=== PATIENT | male | born 1950 | race Caucasian/White ===

== ENCOUNTER 2018-02-08 14:17 | Outpatient (REF) | payer MEDICARE, SELFPAY ==
[2018-02-08 22:39] LABS: Anion Gap 9.1 mmol/L (3-11); BUN 23 mg/dL (7-18); CO2 24.9 mmol/L (21.0-32.0); CREATININE 1.18 mg/dL (0.70-1.30); Calcium 8.5 mg/dL (8.5-10.1); Chloride 105 mmol/L (98-107); Glucose 134 mg/dL (70-100); Magnesium 1.5 mg/dL (1.8-2.4); Potassium 4.2 mmol/L (3.5-5.1); Sodium 139 mmol/L (136-145)
== END 2018-02-08 14:37 ==
LOC: NCHCN 14:17
PROVIDERS: PCP Internal Medicine; Visit Provider Registered Nurse
DX: I67.9 Cerebrovascular disease, unspecified (principal)
CPT/HCPCS: 80048; 83735

== ENCOUNTER 2018-02-23 11:48 | Outpatient (REF) | payer MEDICARE, OTHER, SELFPAY ==
[2018-02-23 23:09] LABS: Magnesium 1.8 mg/dL (1.8-2.4)
== END 2018-02-23 12:08 ==
LOC: NCHCN 11:48
PROVIDERS: PCP Internal Medicine; Visit Provider Registered Nurse
DX: I10 Essential (primary) hypertension (principal); R79.0 Abnormal level of blood mineral
CPT/HCPCS: 83735

== ENCOUNTER 2018-04-25 11:44 | Outpatient (REF) | payer MEDICARE, OTHER, SELFPAY ==
[2018-04-25 22:56] LABS: BUN 27 mg/dL (7-18); CREATININE 1.15 mg/dL (0.70-1.30); Calcium 8.7 mg/dL (8.5-10.1); Chloride 105 mmol/L (98-107); Glucose 109 mg/dL (70-100); Magnesium 1.7 mg/dL (1.8-2.4); Potassium 4.8 mmol/L (3.5-5.1); Sodium 138 mmol/L (136-145)
[2018-04-25 23:31] LABS: COMMENT (LAB VIEW ONLY) 78.62 mg/dL
[2018-04-25 23:38] LABS: Vitamin D 25 Total 40.1 ng/ml (30-100)
[2018-04-27 13:14] LABS: IgA 245 mg/dL (85-499); Interpretation SEE COMMENTS; Tissue Transglutaminase IgA 1.5 U/mL (<4.0)
== END 2018-04-25 12:04 ==
LOC: NCHCN 11:44
PROVIDERS: PCP Internal Medicine; Visit Provider Internal Medicine
DX: E55.9 Vitamin D deficiency, unspecified (principal); Z93.2 Ileostomy status; I10 Essential (primary) hypertension; R40.20 Unspecified coma; R73.01 Impaired fasting glucose
CPT/HCPCS: 80048; 82306; 82784; 83516; 82043; 82570; 83735

== ENCOUNTER 2018-06-14 13:54 | Outpatient (REF) | payer MEDICARE, OTHER, SELFPAY ==
[2018-06-14 22:26] LABS: Magnesium 1.6 mg/dL (1.8-2.4)
== END 2018-06-14 14:14 ==
LOC: NCHCN 13:54
PROVIDERS: PCP Internal Medicine; Visit Provider Internal Medicine
DX: E83.42 Hypomagnesemia (principal)
CPT/HCPCS: 83735

== ENCOUNTER 2019-05-03 08:49 | Outpatient (REF) | payer MEDICARE, OTHER, SELFPAY ==
[2019-05-03 17:00] LABS: Hemoglobin A1C 6.4 % (4.5-6.2)
[2019-05-03 17:01] LABS: Calculated LDL 87 mg/dL; Cholesterol 166 mg/dL (<200); Glucose 113 mg/dL (74-106); HDL Cholesterol 54 mg/dL (40-60); Triglyceride 129 mg/dL (<150)
== END 2019-05-03 09:09 ==
LOC: NCHCN 08:49
PROVIDERS: PCP Internal Medicine; Visit Provider Internal Medicine
DX: E78.5 Hyperlipidemia, unspecified (principal); I10 Essential (primary) hypertension; E83.42 Hypomagnesemia; R73.09 Other abnormal glucose; K90.0 Celiac disease
CPT/HCPCS: 80061; 82947; 83036; 83735

== ENCOUNTER 2020-05-27 16:11 | Outpatient (REF) | payer MEDICARE, OTHER, SELFPAY ==
[2020-05-27 21:07] LABS: Hemoglobin A1C 6.3 % (<5.7)
[2020-05-27 21:09] LABS: Anion Gap 9.2 mmol/L (3-11); BUN 24 mg/dL (7-18); CO2 24.8 mmol/L (21.0-32.0); CREATININE 1.24 mg/dL (0.70-1.30); Calcium 8.8 mg/dL (8.5-10.1); Calculated LDL 76 mg/dL (<100); Chloride 107 mmol/L (98-107); Cholesterol 146 mg/dL (<200); Estimated GFR 57.47 (mL/min/1.73m2); Glucose 111 mg/dL (74-106); HDL Cholesterol 43 mg/dL (40-60); Potassium 4.5 mmol/L (3.5-5.1); Sodium 141 mmol/L (136-145); Triglyceride 136 mg/dL (<150)
[2020-05-27 21:14] LABS: COMMENT (LAB VIEW ONLY) 155.86 mg/dL; Microalb ug/mg Crea 50.7 ug/mg Cr
== END 2020-05-27 16:31 ==
LOC: NCHCN 16:11
PROVIDERS: PCP Internal Medicine; Visit Provider Internal Medicine
DX: I10 Essential (primary) hypertension (principal); E78.5 Hyperlipidemia, unspecified; R73.03 Prediabetes; R80.9 Proteinuria, unspecified
CPT/HCPCS: 80048; 80061; 82043; 82570; 83036

== ENCOUNTER 2021-08-27 15:31 | Outpatient (REF) | payer MEDICARE, SELFPAY ==
[2021-08-27 16:32] LABS: Hemoglobin A1C 6.8 % (<5.7)
[2021-08-27 16:47] LABS: ALT 32 U/L (16-63); AST 17 U/L (15-37); Albumin 3.8 g/dL (3.4-5.0); Alkaline Phosphatase 74 U/L (46-116); Anion Gap 7.9 mmol/L (3-11); BUN 25 mg/dL (7-18); Bilirubin, Total 0.4 mg/dL (0.2-1.0); CO2 27.1 mmol/L (21.0-32.0); CREATININE 1.1 mg/dL (0.70-1.30); Chloride 108 mmol/L (98-107); Glucose 119 mg/dL (74-106); Potassium 4.8 mmol/L (3.5-5.1); Sodium 143 mmol/L (136-145); Total Protein 6.8 g/dL (6.4-8.2)
== END 2021-08-27 15:32 | disposition home or self-care (01) ==
LOC: NCHCN 15:31
PROVIDERS: PCP Internal Medicine; Visit Provider Internal Medicine
DX: E11.9 Type 2 diabetes mellitus without complications (principal); I10 Essential (primary) hypertension
CPT/HCPCS: 80053; 83036

== ENCOUNTER 2022-06-19 11:41 | Outpatient (REF) | payer MEDICARE, SELFPAY ==
[2022-06-19 16:28] LABS: Anion Gap 7.8 mmol/L (3-11); BUN 33 mg/dL (7-18); CO2 24.2 mmol/L (21.0-32.0); CREATININE 1.4 mg/dL (0.70-1.30); Calcium 9.3 mg/dL (8.5-10.1); Calculated LDL 78 mg/dL (<100); Chloride 108 mmol/L (98-107); Cholesterol 154 mg/dL (<200); Estimated GFR 53.07 (mL/min/1.73m2); Glucose 197 mg/dL (74-106); HDL Cholesterol 56 mg/dL (40-60); Potassium 4.5 mmol/L (3.5-5.1); Sodium 140 mmol/L (136-145); Triglyceride 104 mg/dL (<150); Vitamin B12 420 pg/mL (193-986)
[2022-06-19 22:45] LABS: Estimated Average Glucose 163 mg/dL; Hemoglobin A1C 7.3 % (<5.7)
== END 2022-06-19 11:42 | disposition home or self-care (01) ==
LOC: NCHCN 11:41
PROVIDERS: PCP Internal Medicine; Visit Provider Internal Medicine
DX: I10 Essential (primary) hypertension (principal); E78.5 Hyperlipidemia, unspecified; E11.9 Type 2 diabetes mellitus without complications; K90.0 Celiac disease
CPT/HCPCS: 80048; 80061; 82607; 83036

== ENCOUNTER 2022-06-24 10:30 | Outpatient (REF) | payer MEDICARE, SELFPAY ==
[2022-06-24 16:32] LABS: COMMENT (LAB VIEW ONLY) 141.03 mg/dL; Microalb ug/mg Crea 39.7 ug/mg Cr
== END 2022-06-24 10:31 | disposition home or self-care (01) ==
LOC: NCHCN 10:30
PROVIDERS: PCP Internal Medicine; Visit Provider Internal Medicine
DX: E11.9 Type 2 diabetes mellitus without complications (principal)
CPT/HCPCS: 82043; 82570

== ENCOUNTER 2022-12-14 12:54 | Outpatient (REF) | payer MEDICARE, SELFPAY ==
[2022-12-14 15:51] LABS: Anion Gap 9.3 mmol/L (3-11); BUN 37 mg/dL (7-18); CO2 24.7 mmol/L (21.0-32.0); CREATININE 1.6 mg/dL (0.70-1.30); Calcium 9.4 mg/dL (8.5-10.1); Chloride 107 mmol/L (98-107); Estimated GFR 44.93 (mL/min/1.73m2); Glucose 174 mg/dL (74-106); Potassium 4.7 mmol/L (3.5-5.1); Sodium 141 mmol/L (136-145)
[2022-12-14 16:10] LABS: Hemoglobin A1C 6.4 % (<5.7)
== END 2022-12-14 12:55 | disposition home or self-care (01) ==
LOC: NCHCN 12:54
PROVIDERS: PCP Internal Medicine; Visit Provider Internal Medicine
DX: E11.9 Type 2 diabetes mellitus without complications (principal); I10 Essential (primary) hypertension
CPT/HCPCS: 80048; 83036

== ENCOUNTER 2023-03-18 13:10 | Outpatient (REF) | payer MEDICARE, SELFPAY ==
[2023-03-18 16:18] LABS: Abs Immature Grans 0.01 10^3/uL (0.0-0.06); Absolute Basophil Count 0.04 10^3/uL (0.0-0.2); Absolute Eosinophil Count 0.17 10^3/uL (0.0-0.7); Absolute Lymphocyte Count 1.35 10^3/uL (1.2-3.4); Absolute Monocyte Count 0.37 10^3/uL (0.1-0.8); Absolute Neutrophil Count 3.73 10^3/uL (1.2-6.7); Basophils % 0.7; HCT 35.2 % (40.0-50.0); Immature Grans % 0.2; Lymphocytes % 23.8; MCH 32.2 pg (27.0-33.0); MCHC 34.1 % (32.0-36.0); MCV 94 fL (80-95); Monocytes % 6.5; Neutrophils % 65.8; Platelet Count 196 10^3/uL (130-400); RBC 3.73 10^6/uL (4.36-5.78); RDW 13.2 % (11.8-14.1); RDW-SD 45.1 fL; WBC 5.67 10^3/uL (4.4-10.8)
[2023-03-18 16:28] LABS: Anion Gap 9.7 mmol/L (3-11); BUN 33 mg/dL (7-18); CO2 21.3 mmol/L (21.0-32.0); CREATININE 1.7 mg/dL (0.70-1.30); Calcium 9.6 mg/dL (8.5-10.1); Chloride 108 mmol/L (98-107); Estimated GFR 41.78 (mL/min/1.73m2); Glucose 142 mg/dL (74-106); Potassium 4.6 mmol/L (3.5-5.1); Sodium 139 mmol/L (136-145)
[2023-03-18 17:25] LABS: Hemoglobin A1C 6.5 % (<5.7)
== END 2023-03-18 13:11 | disposition home or self-care (01) ==
LOC: NCHCN 13:10
PROVIDERS: PCP Internal Medicine; Visit Provider Internal Medicine
DX: E11.9 Type 2 diabetes mellitus without complications (principal); I10 Essential (primary) hypertension; Z00.00 Encounter for general adult medical examination without abnormal findings; I67.9 Cerebrovascular disease, unspecified
CPT/HCPCS: 80048; 83036; 85025

== ENCOUNTER 2023-06-21 15:07 | Outpatient (REF) | payer MEDICARE, SELFPAY ==
[2023-06-21 14:42] LABS: HCT 36.6 % (40.0-50.0); HGB 12.3 g/dL (13.5-17.5); MCH 31.8 pg (27.0-33.0); MCHC 33.6 % (32.0-36.0); MCV 95 fL (80-95); MPV 11.5 fL (8.0-11.0); Platelet Count 208 10^3/uL (130-400); RBC 3.87 10^6/uL (4.36-5.78); RDW 12.3 % (11.8-14.1); RDW-SD 42.5 fL; WBC 7.01 10^3/uL (4.4-10.8)
[2023-06-21 14:52] LABS: Bilirubin Negative (Negative); Blood Negative (Negative); Clarity Turbid (Clear); Glucose Negative (Negative); Ketones Negative (Negative); Leukocyte Esterase Negative (Negative); Nitrite Negative (Negative); Urobilinogen 0.2 mg/dL (Up to 0.2)
[2023-06-21 15:00] LABS: Total Iron Binding Capacity 255 ug/dL (250-450)
[2023-06-21 15:31] LABS: Anion Gap 9.3 mmol/L (3-11); BUN 39 mg/dL (7-18); CO2 22.7 mmol/L (21.0-32.0); CREATININE 1.8 mg/dL (0.70-1.30); Calcium 9.5 mg/dL (8.5-10.1); Calculated LDL 62 mg/dL (<100); Chloride 105 mmol/L (98-107); Cholesterol 146 mg/dL (<200); Estimated GFR 39.01 (mL/min/1.73m2); Ferritin 275 ng/mL (26-388); Glucose 155 mg/dL (74-106); HDL Cholesterol 59 mg/dL (40-60); Potassium 4.6 mmol/L (3.5-5.1); Sodium 137 mmol/L (136-145); Triglyceride 125 mg/dL (<150); Vitamin B12 213 pg/mL (193-986)
[2023-06-22 09:56] LABS: Transferrin 206 mg/dL (201-352)
== END 2023-06-21 15:08 | disposition home or self-care (01) ==
LOC: NCHCN 15:07
PROVIDERS: PCP Internal Medicine; Visit Provider Internal Medicine
DX: N18.31 Chronic kidney disease, stage 3a (principal)
CPT/HCPCS: 80048; 80061; 85027; 81003; 82607; 82728; 83550; 84466

== ENCOUNTER 2023-06-28 16:14 | Outpatient (REF) | payer MEDICARE, SELFPAY ==
[2023-06-28 18:55] LABS: COMMENT (LAB VIEW ONLY) 168.65 mg/dL; Microalb ug/mg Crea 5.7 ug/mg Cr
== END 2023-06-28 16:15 | disposition home or self-care (01) ==
LOC: NCHCN 16:14
PROVIDERS: PCP Internal Medicine; Visit Provider Internal Medicine
DX: E11.9 Type 2 diabetes mellitus without complications (principal)
CPT/HCPCS: 82043; 82570

== ENCOUNTER 2023-09-13 11:06 | Outpatient (REF) | payer MEDICARE, SELFPAY ==
[2023-09-13 15:16] LABS: HCT 37.5 % (40.0-50.0); HGB 12.4 g/dL (13.5-17.5); MCH 32.2 pg (27.0-33.0); MCHC 33.1 % (32.0-36.0); MCV 97 fL (80-95); MPV 11.9 fL (8.0-11.0); Platelet Count 193 10^3/uL (130-400); RBC 3.85 10^6/uL (4.36-5.78); RDW 13.3 % (11.8-14.1); RDW-SD 47.7 fL; WBC 7.01 10^3/uL (4.4-10.8)
[2023-09-13 16:06] LABS: Anion Gap 10.9 mmol/L (3-11); BUN 41 mg/dL (7-18); CO2 23.1 mmol/L (21.0-32.0); CREATININE 2.2 mg/dL (0.70-1.30); Calcium 9.4 mg/dL (8.5-10.1); Chloride 110 mmol/L (98-107); Estimated GFR 30.47 (mL/min/1.73m2); Glucose 109 mg/dL (74-106); Hemoglobin A1C 6.4 % (<5.7); Potassium 5.1 mmol/L (3.5-5.1); Sodium 144 mmol/L (136-145); Vitamin B12 428 pg/mL (193-986)
== END 2023-09-13 11:07 | disposition home or self-care (01) ==
LOC: NCHCN 11:06
PROVIDERS: PCP Internal Medicine; Visit Provider Internal Medicine
DX: E11.9 Type 2 diabetes mellitus without complications (principal); D64.9 Anemia, unspecified; N18.31 Chronic kidney disease, stage 3a
CPT/HCPCS: 80048; 85027; 82607; 83036

== ENCOUNTER 2023-09-17 13:14 | Outpatient (REF) | payer MEDICARE, SELFPAY ==
[2023-09-17 21:40] LABS: Epithelial Cells Rare HPF (Negative); RBC Negative HPF (0-2); WBC Negative HPF (0-5)
[2023-09-17 21:41] LABS: Bacteria Rare HPF (Negative); C & S Indicated? No; Casts Negative LPF (Negative); Crystals Moderate Amorphous HPF (Negative); Mucus Negative (Negative)
== END 2023-09-17 13:15 | disposition home or self-care (01) ==
LOC: NCHCN 13:14
PROVIDERS: PCP Internal Medicine; Visit Provider Internal Medicine
DX: N18.31 Chronic kidney disease, stage 3a (principal)
CPT/HCPCS: 81015

== ENCOUNTER 2023-12-20 15:21 | Outpatient (REF) | payer MEDICARE, SELFPAY ==
[2023-12-20 21:33] LABS: MCH 31.8 pg (27.0-33.0); MCHC 34.1 % (32.0-36.0); MCV 93 fL (80-95); MPV 11.6 fL (8.0-11.0); Platelet Count 233 10^3/uL (130-400); RDW 12.4 % (11.8-14.1); RDW-SD 42.9 fL; WBC 8.43 10^3/uL (4.4-10.8)
[2023-12-20 21:59] LABS: Anion Gap 9.8 mmol/L (3-11); BUN 42 mg/dL (7-18); CO2 24.2 mmol/L (21.0-32.0); CREATININE 1.8 mg/dL (0.70-1.30); Calcium 9.4 mg/dL (8.5-10.1); Chloride 105 mmol/L (98-107); Estimated GFR 38.77 (mL/min/1.73m2); Glucose 143 mg/dL (74-106); Potassium 4.9 mmol/L (3.5-5.1); Sodium 139 mmol/L (136-145)
[2023-12-20 22:10] LABS: Hemoglobin A1C 6.1 % (<5.7)
== END 2023-12-20 15:22 | disposition home or self-care (01) ==
LOC: NCHCN 15:21
PROVIDERS: PCP Internal Medicine; Visit Provider Internal Medicine
DX: E11.9 Type 2 diabetes mellitus without complications (principal); I10 Essential (primary) hypertension
CPT/HCPCS: 80048; 85027; 83036

== ENCOUNTER 2024-06-16 19:20 | Outpatient (REF) | payer MEDICARE, SELFPAY ==
[2024-06-16 14:19] LABS: HCT 42.9 % (40.0-50.0); HGB 14.1 g/dL (13.5-17.5); MCH 31.5 pg (27.0-33.0); MCHC 32.9 % (32.0-36.0); MCV 96 fL (80-95); MPV 11.7 fL (8.0-11.0); Platelet Count 193 10^3/uL (130-400); RBC 4.48 10^6/uL (4.36-5.78); RDW-SD 45.2 fL; WBC 6.59 10^3/uL (4.4-10.8)
[2024-06-16 14:53] LABS: ALT 19 U/L (16-63); AST 15 U/L (15-37); Albumin 3.9 g/dL (3.4-5.0); Alkaline Phosphatase 91 U/L (46-116); Anion Gap 8.2 mmol/L (3-11); BUN 36 mg/dL (7-18); Bilirubin, Total 0.44 mg/dL (0.2-1.0); CO2 26.8 mmol/L (21.0-32.0); CREATININE 2.1 mg/dL (0.70-1.30); Calcium 9.9 mg/dL (8.5-10.1); Chloride 109 mmol/L (98-107); Estimated GFR 32.22 (mL/min/1.73m2); Glucose 134 mg/dL (74-106); PHOSPHORUS 3.6 mg/dL (2.6-4.7); Potassium 4.7 mmol/L (3.5-5.1); Sodium 144 mmol/L (136-145); Total Protein 7.3 g/dL (6.4-8.2)
[2024-06-16 15:33] LABS: Vitamin D 25 Total 68.1 ng/mL (30-100)
[2024-06-16 23:01] LABS: Parathyroid Hormone,Intact 82.4 pg/mL (19.0-88.0)
== END 2024-06-16 19:21 | disposition home or self-care (01) ==
LOC: NCHCN 19:20
PROVIDERS: PCP Internal Medicine; Visit Provider Internal Medicine
DX: N18.31 Chronic kidney disease, stage 3a (principal)
CPT/HCPCS: 80053; 82306; 85027; 83036; 83970; 84100

== ENCOUNTER 2024-06-23 10:23 | Outpatient (REF) | payer MEDICARE, SELFPAY ==
[2024-06-23 15:24] LABS: COMMENT (LAB VIEW ONLY) 167.39 mg/dL; Microalb ug/mg Crea 4.2 ug/mg Cr
== END 2024-06-23 10:24 | disposition home or self-care (01) ==
LOC: NCHCN 10:23
PROVIDERS: PCP Internal Medicine; Visit Provider Internal Medicine
DX: E11.9 Type 2 diabetes mellitus without complications (principal)
CPT/HCPCS: 82043; 82570

== ENCOUNTER 2024-09-13 14:33 | Outpatient (REF) | payer MEDICARE, SELFPAY ==
[2024-09-13 21:38] LABS: Anion Gap 5.9 mmol/L (3-11); BUN 26 mg/dL (7-18); CO2 29.1 mmol/L (21.0-32.0); CREATININE 1.8 mg/dL (0.70-1.30); Calcium 9.9 mg/dL (8.5-10.1); Chloride 108 mmol/L (98-107); Estimated GFR 38.53 (mL/min/1.73m2); Glucose 121 mg/dL (74-106); Potassium 4.9 mmol/L (3.5-5.1); Sodium 143 mmol/L (136-145)
== END 2024-09-13 14:34 | disposition home or self-care (01) ==
LOC: NCHCN 14:33
PROVIDERS: PCP Internal Medicine; Visit Provider Internal Medicine
DX: I10 Essential (primary) hypertension (principal)
CPT/HCPCS: 80048

== ENCOUNTER 2025-04-27 16:11 | Outpatient (REF) | payer MEDICARE, SELFPAY ==
[2025-04-27 21:42] LABS: HCT 47.6 % (40.0-50.0); HGB 15.8 g/dL (13.5-17.5); MCH 31.4 pg (27.0-33.0); MCHC 33.2 % (32.0-36.0); MCV 95 fL (80-95); MPV 11.6 fL (8.0-11.0); Platelet Count 220 10^3/uL (130-400); RBC 5.03 10^6/uL (4.36-5.78); RDW 13.2 % (11.8-14.1); RDW-SD 45.5 fL; WBC 6.66 10^3/uL (4.4-10.8)
[2025-04-27 22:07] LABS: ALT 15 U/L (10-49); AST 18 U/L (<34); Albumin 4.3 g/dL (3.4-5.0); Alkaline Phosphatase 93 U/L (46-116); Anion Gap 9.9 mmol/L (3-11); BUN 26 mg/dL (9-23); Bilirubin, Total 0.70 mg/dL (0.2-1.2); CO2 26.1 mmol/L (20.0-31.0); Calcium 9.9 mg/dL (8.3-10.6); Chloride 106 mmol/L (98-107); Glucose 141 mg/dL (74-106); Potassium 5.4 mmol/L (3.5-5.1); Sodium 142 mmol/L (136-145); Total Protein 7.4 g/dL (5.7-8.2)
== END 2025-04-27 16:12 | disposition home or self-care (01) ==
LOC: NCHCN 16:11
PROVIDERS: PCP Internal Medicine; Visit Provider Internal Medicine
DX: N18.31 Chronic kidney disease, stage 3a (principal)
CPT/HCPCS: 80053; 85027